=== PATIENT | female | born 1985 | race African-American/Black ===

== ENCOUNTER 2017-11-02 21:43 | Emergency (ER) | payer OTHER ==
[2017-11-02 21:53] VITALS: BP 132/78; PULSE 111; TEMP 98.3; BMI 26.6
--- NOTE | 2017-11-02 21:54 | PDOC ---
Rapid Medical Evaluation Time Seen by Provider: 11/02/17 21:43 Medical Evaluation: Allergies Allergy/AdvReac Type Severity Reaction Status Date / Time No Known Allergies Allergy Verified 02/20/16 00:18 11/02/17 21:46 The patient presents with a chief complaint of: Redness to the tip of the left second finger, cuticle base. H/O Raynauds, gets frequent infections requiring antibiotics. I have performed a brief in-person evaluation of this patient. Pertinent physical exam findings: vss, [mild erythema without edema to the tip of the left second finger, ] I have ordered the following: [None] The patient will proceed to the ED for further evaluation. Discharge Disposition - Diagnosis Finger infection - Referrals - Patient Instructions - Post Discharge Activity
--- NOTE | 2017-11-02 22:47 | PDOC ---
History of Present Illness <Julisa Medel - Last Filed: 11/02/17 22:51> - General History Source: Patient Exam Limitations: No Limitations - History of Present Illness Initial Comments: 11/02/17 22:57 The patient is a year old female, with a significant past medical history of ADHD, s/p pericardial window (2013), and Raynauds, who presents to the emergency department with, three days of an ulcer on her left index with associated pain. She reports associated erythema to the area. She denies recent fevers, chills, headache or dizziness. She denies recent nausea, vomit, diarrhea or constipation. She denies recent dysuria, frequency, urgency or hematuria. She denies recent chest pain or shortness of breath. Allergies: NKA Social history: Nonsmoker. Denies EtOH use and recreational drug use. Primary Care Physician: Dr. Krzysztof Iverson <Tess Evans - Last Filed: 11/02/17 22:58> - General Chief Complaint: Pain Stated Complaint: PAIN Time Seen by Provider: 11/02/17 21:43 Past History - Past Medical History Cancer: Yes (lung) COPD: No Seizures: Yes (NO ACTIVITY SINCE 18 YRS OLD) Other medical history: Raynaud's - Surgical History Cardiac Surgery: Yes (Pericardial window) Orthopedic Surgery: Yes (knee Surgery) - Immunization History Immunization Up to Date: Yes - Suicide/Smoking/Psychosocial Hx Smoking Status: No Smoking History: Never smoked Have you smoked in the past 12 months: No Number of Cigarettes Smoked Daily: 0 Information on smoking cessation initiated: No Hx Alcohol Use: No Drug/Substance Use Hx: No Substance Use Type: None <Julisa Medel - Last Filed: 11/02/17 22:51> <Tess Evans - Last Filed: 11/02/17 22:58> - Past Medical History Allergies/Adverse Reactions: Allergies Allergy/AdvReac Type Severity Reaction Status Date / Time No Known Allergies Allergy Verified 11/02/17 21:49 Home Medications: Ambulatory Orders Nifedipine [Nifedipine ER] 60 mg PO DAILY 02/20/16 Cephalexin Monohydrate [Keflex -] 500 mg PO BID #14 capsule 11/02/17 Sulfamethoxazole/Trimethoprim [Bactrim Ds -] 1 tab PO BID #14 tablet 11/02/17 Review of Systems - Review of Systems Able to Perform ROS?: Yes Comments:: 11/02/17 22:58 CONSTITUTIONAL: Absent: fever, no chills, no fatigue EYES: Absent: visual changes ENT: Absent: ear pain, no sore throat CARDIOVASCULAR: Absent: chest pain, no palpitations RESPIRATORY: Absent: cough, no SOB GI: Absent: abdominal pain, no nausea, no vomiting, no constipation, no diarrhea GENITOURINARY: Absent: dysuria, no frequency, no hematuria MUSKULOSKELETAL: Absent: back pain, no arthralgia, no myalgia SKIN: Present: +Ulcer on the left index finger. +Pain to left index finger with associated erythema. NEURO: Absent: headache All Other Systems: Reviewed and Negative <Tess Evans - Last Filed: 11/02/17 22:58> *Physical Exam - Vital Signs Last Vital Signs Temp Pulse Resp BP Pulse Ox 98.3 F 111 H 20 132/78 97 11/02/17 21:50 11/02/17 21:50 11/02/17 21:50 11/02/17 21:50 11/02/17 21:50 <Julisa Medel - Last Filed: 11/02/17 22:51> - Vital Signs Last Vital Signs Temp Pulse Resp BP Pulse Ox 98.3 F 111 H 20 132/78 97 11/02/17 21:50 11/02/17 21:50 11/02/17 21:50 11/02/17 21:50 11/02/17 21:50 - Physical Exam Comments: 11/02/17 22:58 GENERAL: Well-appearing, well-nourished. No apparent distress. HEENT: Normocephalic, atraumatic. PERRL, EOM intact. CARDIOVASCULAR: Normal S1, S2. Regular rate and rhythm. PULMONARY: Clear to auscultation bilaterally. ABDOMEN: Soft, non-distended, non-tender. EXTREMITIES: Normal ROM in all four extremities. No gross deformities. SKIN: + 0.5cm Cellulitis to the left index finger without associated discharge. Warm, dry. No rash NEUROLOGICAL: No focal neurological deficits. <Tess Evans - Last Filed: 11/02/17 22:58> *DC/Admit/Observation/Transfer - Discharge Dispostion Admit: No <Juilsa Medel - Last Filed: 11/02/17 22:51> - Attestations Scribe Attestion: 11/02/17 22:58 Documentation prepared by Tess Evans, acting as medical fee clerk for Galdino Swain MD. <Tess Evans - Last Filed: 11/02/17 22:58> Diagnosis at time of Disposition: Cellulitis, finger Qualifiers: Laterality: left Qualified Code(s): L03.012 - Cellulitis of left finger - Discharge Dispostion Disposition: HOME - Prescriptions Prescriptions: Cephalexin Monohydrate [Keflex -] 500 mg PO BID #14 capsule Sulfamethoxazole/Trimethoprim [Bactrim Ds -] 1 tab PO BID #14 tablet - Referrals Referrals: Krzysztof Iverson MD [Primary Care Provider] - - Patient Instructions Printed Discharge Instructions: DI for Cellulitis -- Adult Additional Instructions: You have an infection of your L finger. Please take the antibiotics as prescribed for the next week. Please use warm water soaks to help draw the infection to the surface. Please keep an eye on the size of the infection. If it appears to be getting bigger please come back into the emergency department, or go to the nearest emergency department. Return sooner if you see worsening signs of infection, fevers, chills, or have any changes in your symptoms. - Post Discharge Activity
== END 2017-11-02 23:01 | disposition home or self-care (01) ==
LOC: JERFT 21:43
DX: L03.012 Cellulitis of left finger (principal); F90.9 Attention-deficit hyperactivity disorder, unspecified type; I73.00 Raynaud's syndrome without gangrene
CPT/HCPCS: 99281-25

== ENCOUNTER 2018-05-20 08:13 | Emergency (ER) | payer OTHER ==
[2018-05-20 08:22] VITALS: BMI 28.7
--- NOTE | 2018-05-20 08:32 | PDOC ---
History of Present Illness - General Chief Complaint: Chest Pain Stated Complaint: CHEST PAIN Time Seen by Provider: 05/20/18 08:30 History Source: Patient Exam Limitations: No Limitations - History of Present Illness Initial Comments: 05/20/18 09:13 32y F hx of scleroderma, hx of ptx, pericardial effusion s/p pericardial window presents with sharp, locaLized nonradiating left upper chest pain starting yesterday evening. Pt notes the pain was episodic, lasting for minutes before resolving and then coming bakc. improved with ibuprofent last night. no associtaed cough, hemopysis, STRAUSS, fever/chills, leg swelling, abd pain, diaphoresis, palpitations, lightheadedness. Pt notes the pain has since resolved since last night. no recen ttravel or known pe/dvt Card: Dr. Paul Past History - Past Medical History Allergies/Adverse Reactions: Allergies Allergy/AdvReac Type Severity Reaction Status Date / Time No Known Allergies Allergy Verified 05/20/18 08:22 Home Medications: Ambulatory Orders Esomeprazole Magnesium [Nexium 24Hr] 40 mg PO DAILY 05/20/18 Rituximab [Rituxan] 0 mg PO ASDIR 05/20/18 Sulfamethoxazole/Trimethoprim [Bactrim Ds -] 1 tab PO MOWEFR 05/20/18 Cancer: Yes (lung) COPD: No Seizures: Yes (NO ACTIVITY SINCE 18 YRS OLD) Other medical history: sclarederma - Surgical History Cardiac Surgery: Yes (Pericardial window) Orthopedic Surgery: Yes (knee Surgery) - Immunization History Immunization Up to Date: Yes - Suicide/Smoking/Psychosocial Hx Smoking Status: No Smoking History: Never smoked Have you smoked in the past 12 months: No Number of Cigarettes Smoked Daily: 0 Hx Alcohol Use: No Drug/Substance Use Hx: No Substance Use Type: None Review of Systems - Review of Systems Able to Perform ROS?: Yes Comments:: 05/20/18 09:48 Constitutional - no reported Fever, Chills, HEENT: no reported vision changes, sore throat Respiratory: no reported cough, sob, hemoptysis Cardiac: +chest pain, no reported palpitations, light headedness, leg swelling Abd/GI: no reported abd pain, nausea, vomiting, blood per rectum, melena, diarrhea : no reported dysuria, frequency, discharge Musculskelatal - no reported back pain, joint swelling skin - no reported bruising, erythema, rash neurological: no reported headache, numbness, focal weakness, tingling, ataxia, hematologic: no reported easy bruising, easy bleeding *Physical Exam - Vital Signs Last Vital Signs Temp Pulse Resp BP Pulse Ox 98.1 F 68 18 118/79 99 05/20/18 08:18 05/20/18 08:18 05/20/18 08:18 05/20/18 08:18 05/20/18 08:30 - Physical Exam Comments: 05/20/18 09:49 GENERAL: The patient is awake, alert, and fully oriented, Nontoxic - in no acute distress. HEAD: Normocephalic, atraumatic. EYES: extraocular movements intact, sclera anicteric, conjunctiva clear. ENT: Normal voice, Moist mucous membranes. NECK: Normal range of motion, supple LUNGS: Breath sounds equal, clear to auscultation bilaterally. No wheezes, no rhonchi, no rales. HEART: Regular rate and rhythm, normal S1 and S2 without murmur, rub or gallop. ABDOMEN: Soft, nontender, No guarding, no rebound. No CVA tenderness EXTREMITIES: Normal range of motion, no edema. No clubbing or cyanosis. No cords, erythema, or tenderness. NEUROLOGICAL: No facial assymetry, Normal speech, moving all 4 extremities spontaneously and symmetically PSYCH: Normal mood, normal affect. SKIN: Warm, Dry, normal turgor, Heart Score/ECG Review - ECG Impressions Comment:: 05/20/18 09:52 Twelve-lead EKG was performed and reviewed by me. There is normal sinus rhythm with a normal rate. Rate of 69 The axis is normal. The intervals are normal. There is normal R wave progression There are no ST or T wave abnormalities. Impression: Normal twelve-lead EKG ED Treatment Course - LABORATORY CBC & Chemistry Diagram: 05/20/18 10:15 05/20/18 10:15 - ADDITIONAL ORDERS Additional order review: Laboratory Results 05/20/18 05/20/18 10:15 10:08 Sodium 139 Potassium 4.2 Chloride 105 Carbon Dioxide 25 Anion Gap 9 BUN 9 Creatinine 0.7 Creat Clearance w eGFR > 60 Random Glucose 76 Calcium 9.4 Total Bilirubin 0.3 AST 20 ALT 14 Alkaline Phosphatase 98 Creatine Kinase 233 H Creatine Kinase Index 0.4 CK-MB (CK-2) < 1.0 Troponin I < 0.02 Total Protein 8.3 H Albumin 3.3 L Urine Color Yellow Urine Appearance Clear Urine pH 6.0 Ur Specific [place] 1.013 Urine Protein 1+ H Urine Glucose (UA) Negative Urine Ketones Negative Urine Blood Negative Urine Nitrite Negative Urine Bilirubin Negative Urine Urobilinogen Negative Ur Leukocyte Esterase Negative Urine WBC (Auto) 1 Urine RBC (Auto) <1 Ur Epithelial Cells Rare Urine Bacteria Rare Urine Mucus Few Urine HCG, Qual Negative 05/20/18 10:15 RBC 4.12 MCV 88.7 MCHC 33.1 RDW 13.6 MPV 7.2 L Neutrophils % 68.1 Lymphocytes % 23.3 D Monocytes % 6.6 Eosinophils % 1.6 D Basophils % 0.4 - RADIOLOGY Radiology Studies Ordered: Category Date Time Status CHEST PA & LAT [RAD] Stat Radiology 05/20/18 09:16 Taken Medical Decision Making - Medical Decision Making 05/20/18 09:53 32-year-old female history of scleroderma,pericardial effusion status post her cardio window, pneumothorax, presenting with episodic chest pain that is since resolved. Patient is currently asymptomatic with an unremarkable physical exam. Bedside echo reveals trace pericardial effusion Obtain formal echo, will obtain CBC CMP, troponin EKG is unremarkable with no signs of acute ischemia cxr to r/o ptx Case was discussed with Dr. Paul telemetry agrees with blood work, formal echo, chest x-ray 05/20/18 10:[address] paul - reviewed his notes - had an echo in jul that did not show any notable effusions, but agrees with repeating if there is concern of possible effusion 05/20/18 12:19 The patient's labs are unremrakble The patient's echo shows trivial amount of effusion that is not hemodynamicaly significant. The patient is currently asymptomatic Discussed with Dr. Paul agree with discharge with outpatient follow-up 05/20/18 13:10 cxr neg for acute pathology *DC/Admit/Observation/Transfer Diagnosis at time of Disposition: Chest pain Qualifiers: Chest pain type: unspecified Qualified Code(s): R07.9 - Chest pain, unspecified - Discharge Dispostion Disposition: HOME Condition at time of disposition: Improved Decision to Admit order: No - Referrals Referrals: Jairo Paul MD [Staff Physician] - - Patient Instructions Printed Discharge Instructions: DI for Atypical Chest Pain Additional Instructions: Return to the emergency department immediately with ANY new, persistent or worsening symptoms. You MUST call and follow up with your doctor tomorrow for further evaluation of your symptoms. Results were discussed with you. Please make sure your doctor reviews the results of your emergency evaluation. If you had any xrays during your visit, it was read preliminarily by myself, a Radiologist will review it and if there are any additional findings we will call you. Print Language: URDU - Post Discharge Activity
[2018-05-20 10:31] LABS: BASO % 0.4 % (0-2.0); EOS % 1.6 % (0-4.5); HEMATOCRIT 36.6 % (32.4-45.2); HEMOGLOBIN 12.1 GM/dL (10.7-15.3); LYMPH % 23.3 % (8-40); MCH 29.4 pg (25.7-33.7); MCHC 33.1 g/dl (32.0-36.0); MEAN CELL VOLUME 88.7 fl (80-96); MEAN PLT VOLUME 7.2 fl (7.5-11.1); MONO % 6.6 % (3.8-10.2); NEUT % 68.1 % (42.8-82.8); PLATELET COUNT 329 K/MM3 (134-434); RBC 4.12 M/mm3 (3.60-5.2); RDW 13.6 % (11.6-15.6); WHITE BLOOD COUNT 8.6 K/mm3 (4.0-10.0)
[2018-05-20 10:44] LABS: URINE APPEARANCE CLEAR; URINE BILIRUBIN NEGATIVE (<2.0 mg/dL); URINE COLOR YELLOW; URINE GLUCOSE (UA) NEGATIVE (NEGATIVE); URINE KETONE NEGATIVE (NEGATIVE); URINE LEUK ESTERASE NEGATIVE (NEGATIVE); URINE NITRITE NEGATIVE (NEGATIVE); URINE UROBILINOGEN NEGATIVE mg/dL (0.2-1.0)
[2018-05-20 10:45] LABS: HCG,QUALITATIVE URINE Negative
[2018-05-20 10:50] LABS: ALBUMIN 3.3 g/dl (3.4-5.0); ALK PHOS 98 U/L (45-117); ANION GAP 9 MMOL/L (8-16); BILIRUBIN,TOTAL 0.3 mg/dL (0.2-1); BLOOD UREA NITROGEN 9 mg/dL (7-18); CALCIUM 9.4 mg/dL (8.5-10.1); CHLORIDE 105 mmol/L (98-107); CO2 25 mmol/L (21-32); CREATININE 0.7 mg/dL (0.55-1.3); GLUCOSE,RANDOM 76 mg/dL (74-106); POTASSIUM 4.2 mmol/L (3.5-5.1); SGOT/AST 20 U/L (15-37); SGPT/ALT 14 U/L (13-61); SODIUM 139 mmol/L (136-145); TOT PROT 8.3 g/dl (6.4-8.2)
[2018-05-20 11:02] LABS: URINE PROTEIN 1+ (NEGATIVE)
[2018-05-20 11:04] LABS: EPI CELLS RARE /HPF (FEW); URINE BACTERIA RARE /hpf (NONE SEEN); URINE MUCUS FEW
--- NOTE | 2018-05-20 11:12 | ECHO ---
Name: JEANNA LEMUS Exam:Adult Echocardiogram Study Date: 05/20/2018 10:34 AM Age: 32 yrs Reason For Study: R/O EFFUSION Height: 68 in Weight: 189 lb BSA: 2.0 m2 MMode/2D Measurements & Calculations IVSd: 0.77 cm Ao root diam: 2.5 cm LVIDd: 5.1 cm LA dimension: 2.8 cm LVIDs: 3.3 cm LVPWd: 0.96 cm EDV(Teich): 121.7 ml ESV(Teich): 44.1 ml Doppler Measurements & Calculations MV E max vitor: 78.1 cm/sec TR max vitor: 245.7 cm/sec MV A max vitor: 55.3 cm/sec TR max P.1 mmHg MV E/A: 1.4 MV dec time: 0.12 sec Med Peak E' Vitor: 7.1 cm/sec PI Vmax: 192.7 cm/sec Med E/e': 11.0 Lat Peak E' Vitor: 7.4 cm/sec Lat E/e': 10.6 Procedure The study was technically difficult with many images being suboptimal in quality. Left Ventricle Left ventricular systolic function is grossly normal. Regional wall motion abnormalities cannot be ex cluded due to limited visualization. Right Ventricle The right ventricle is grossly normal size. The right ventricular systolic function is grossly normal . Atria Normal left and right atrial size and function. Mitral Valve The mitral valve is grossly normal. There is no mitral valve stenosis. There is trace to mild mitral regurgitation. Tricuspid Valve The tricuspid valve is not well visualized, but is grossly normal. There is mild tricuspid regurgitat ion. Right ventricular systolic pressure is normal. Aortic Valve The aortic valve opens well. No hemodynamically significant valvular aortic stenosis. No aortic regur gitation is present. Pulmonic Valve The pulmonic valve is not well seen, but is grossly normal. There is no pulmonic valvular stenosis. M ild pulmonic valvular regurgitation. Great Vessels The aortic root is normal size. Pericardium/Pleura Trivial pericardial effusion not hemodynamically significant. Interpretation Summary Trivial pericardial effusion not hemodynamically significant The study was technically difficult with many images being suboptimal in quality. Regional wall motion abnormalities cannot be excluded due to limited visualization. Left ventricular systolic function is grossly normal. There is trace to mild mitral regurgitation. There is mild tricuspid regurgitation. Right ventricular systolic pressure is normal. The aortic valve opens well. Mild pulmonic valvular regurgitation. MD Terell Cedeño 05/20/2018 11:11 AM
[2018-05-20 13:21] VITALS: BP 116/79; PULSE 73; TEMP 98
--- NOTE | 2018-05-21 08:13 | PDOC ---
Patient Follow-up (Call Back) - Post ED Follow - Up Condition at time of discharge: Improved Disposition at time of original discharge: HOME Reason for Call Back: Radiology (Received phone call from radiologist recommending a nonemergent CT of the chest secondary to patchy density near the mediastinum. spoke to mother and will follow up with architecture technician, Dr. Huerta)
--- NOTE | 2018-05-21 15:39 | EKG ---
Test Reason : Blood Pressure : / mmHG Vent. Rate : 069 BPM Atrial Rate : 069 BPM P-R Int : 142 ms QRS Dur : 068 ms QT Int : 398 ms P-R-T Axes : 028 069 027 degrees QTc Int : 426 ms NORMAL SINUS RHYTHM NORMAL ECG WHEN COMPARED WITH ECG OF 08-JUN-2014 08:34, T WAVE AMPLITUDE HAS INCREASED IN LATERAL LEADS Confirmed by MD Freddy, Flaco ([id number]) on 05/21/2018 3:39:31 PM Referred By: Confirmed By:Flaco Hayes MD
== END 2018-05-20 13:19 | disposition home or self-care (01) ==
LOC: JER 08:13
DX: R07.9 Chest pain, unspecified (principal); Z85.118 Personal history of other malignant neoplasm of bronchus and lung
CPT/HCPCS: 36415; 71046-TC-FY; 80053; 81003; 81015; 82550; 82553; 84484; 84703; 85025; 93005; 93010; 93306-TC; 99285-25

== ENCOUNTER 2018-05-24 15:35 | Emergency (ER) | payer OTHER ==
--- NOTE | 2018-05-24 16:25 | PDOC ---
Rapid Medical Evaluation Time Seen by Provider: 05/24/18 16:20 Medical Evaluation: Allergies Allergy/AdvReac Type Severity Reaction Status Date / Time No Known Allergies Allergy Verified 05/20/18 08:22 05/24/18 16:21 Pt with PMH of varinder presents to the ED for R 4th finger pain. Pt is L hand dominant. States that she feels like she pulled something yesterday Exam: TTP of the base of the 4th metacarple. Depressed knuckle Orders: X-ray Pt to proceed to the ED for further evaluation Discharge Disposition - Diagnosis Finger pain Qualifiers: Laterality: right Qualified Code(s): M79.644 - Pain in right finger(s) - Referrals - Patient Instructions - Post Discharge Activity
[2018-05-24 16:26] VITALS: BP 123/76; PULSE 58; TEMP 98; BMI 28.7
--- NOTE | 2018-05-24 17:34 | PDOC ---
History of Present Illness - General Chief Complaint: Pain, Acute Stated Complaint: RT HAND SWOLLEN Time Seen by Provider: 05/24/18 16:20 - History of Present Illness Initial Comments: 32-year-old female presents for evaluation of right fourth finger pain. She states she was reaching for something in her car felt a strain in the palmar aspect of her right hand and has now right ring finger pain. She has no comorbidities. 05/24/18 17:28 Past History - Past Medical History Allergies/Adverse Reactions: Allergies Allergy/AdvReac Type Severity Reaction Status Date / Time No Known Allergies Allergy Verified 05/20/18 08:22 Home Medications: Ambulatory Orders NK [No Known Home Medication] 05/24/18 Cancer: Yes (lung) COPD: No DVT: No Seizures: Yes (NO ACTIVITY SINCE 18 YRS OLD) - Surgical History Cardiac Surgery: Yes (Pericardial window) Orthopedic Surgery: Yes (knee Surgery) - Immunization History Immunization Up to Date: Yes - Suicide/Smoking/Psychosocial Hx Smoking Status: No Smoking History: Never smoked Have you smoked in the past 12 months: No Number of Cigarettes Smoked Daily: 0 Hx Alcohol Use: No Drug/Substance Use Hx: No Substance Use Type: None Review of Systems - Review of Systems Musculoskeletal: Yes: See HPI All Other Systems: Reviewed and Negative *Physical Exam - Vital Signs Last Vital Signs Temp Pulse Resp BP Pulse Ox 98 F 58 L 16 123/76 99 05/24/18 16:24 05/24/18 16:24 05/24/18 16:24 05/24/18 16:24 05/24/18 16:24 - Physical Exam Comments: Left fourth finger skin color and temperature are normal. There is hyperextension of the DIPJ and flexion of the PIPJ. FDS and FDP work independently. There is mild tenderness throughout the or smoke finger. Mild tenderness about the palmar aspect and A-1 carlos of the right fourth finger. There are no gross sensorimotor deficits. She is neurovascularly intact. [employer] Floor [employer] Assembly strength is slightly decreased. 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 I'll have her follow-up with Dr. Burgos from hand surgery further evaluation and treatment options. 05/24/18 17:30 *DC/Admit/Observation/Transfer Diagnosis at time of Disposition: Boutonniere deformity of finger Finger pain Qualifiers: Laterality: right Qualified Code(s): M79.644 - Pain in right finger(s) - Discharge Dispostion Disposition: HOME Condition at time of disposition: Stable Decision to Admit order: No - Referrals Referrals: Brayan Burgos MD [Staff Physician] - - Patient Instructions Printed Discharge Instructions: Boutonnire Deformity of Finger Additional Instructions: Keep the splint intact place until seen by hand surgery. Please follow-up with hand surgery in 2-3 days for further evaluation and treatment options. He may remove this point for hygiene. Return to the emergency room should symptoms worsen or go unresolved. He may take Tylenol and Motrin for pain. - Post Discharge Activity
== END 2018-05-24 18:16 | disposition home or self-care (01) ==
LOC: JERFT 15:35
PROC: 2W3JX1Z Immobilization of Right Finger using Splint (ICD-10-PCS; principal; 2018-05-24)
DX: M20.021 Boutonniere deformity of right finger(s) (principal); Z85.110 Personal history of malignant carcinoid tumor of bronchus and lung; Z86.69 Personal history of other diseases of the nervous system and sense organs
CPT/HCPCS: 29130; 73130-TC-RT-FY; 84703; 99281-25

== ENCOUNTER 2018-06-22 18:06 | Emergency (ER) | payer OTHER ==
[2018-06-22] MEDS ORDERED: SODIUM CHLORIDE 0.9% 1000 ML INFUS.BAG IV STA (18:28)
[2018-06-22 18:30] VITALS: BMI 27.2
--- NOTE | 2018-06-22 18:30 | PDOC ---
Rapid Medical Evaluation Time Seen by Provider: 06/22/18 18:22 Medical Evaluation: Allergies Allergy/AdvReac Type Severity Reaction Status Date / Time No Known Allergies Allergy Verified 05/20/18 08:22 06/22/18 18:24 I have performed a brief in-person evaluation of this patient. The patient presents with a chief complaint of: "My bones hurt." h/o scleroderma on Chemo- last dose 06/13 Pertinent physical exam findings: Coarse crackles in Right base. T-99.1, HR-104 , Spo2- 97% I have ordered the following: Sepsis w/u The patient will proceed to the ED for further evaluation. Discharge Disposition - Diagnosis Cough - Referrals - Patient Instructions - Post Discharge Activity
[2018-06-22 20:56] LABS: URINE APPEARANCE CLEAR; URINE BILIRUBIN NEGATIVE (<2.0 mg/dL); URINE COLOR YELLOW; URINE GLUCOSE (UA) NEGATIVE (NEGATIVE); URINE KETONE NEGATIVE (NEGATIVE); URINE LEUK ESTERASE NEGATIVE (NEGATIVE); URINE NITRITE NEGATIVE (NEGATIVE); URINE PROTEIN 2+ (NEGATIVE); URINE UROBILINOGEN NEGATIVE mg/dL (0.2-1.0)
[2018-06-22 20:59] LABS: URINE MUCUS RARE
[2018-06-22 21:18] LABS: BASO % 0.4 % (0-2.0); EOS % 0.8 % (0-4.5); HEMATOCRIT 37.9 % (32.4-45.2); HEMOGLOBIN 12.2 GM/dL (10.7-15.3); LYMPH % 13.7 % (8-40); MCH 28.1 pg (25.7-33.7); MCHC 32.3 g/dl (32.0-36.0); MEAN CELL VOLUME 86.9 fl (80-96); MEAN PLT VOLUME 7.4 fl (7.5-11.1); MONO % 5.7 % (3.8-10.2); NEUT % 79.4 % (42.8-82.8); PLATELET COUNT 323 K/MM3 (134-434); RBC 4.36 M/mm3 (3.60-5.2); RDW 13.7 % (11.6-15.6); VENOUS PC02 35.1 mmHg (38-52); VENOUS PH 7.45 (7.32-7.42); VENOUS PO2 39.7 mmHg (28-48); WHITE BLOOD COUNT 12.9 K/mm3 (4.0-10.0)
[2018-06-22 21:33] LABS: INR 1.13 (0.83-1.09); PROTHROMBIN TIME (PATIENT) 13.4 SEC (9.7-13.0)
[2018-06-22 21:35] LABS: ACTIVATED PTT 31.4 SECONDS (25.2-36.5)
[2018-06-22 21:39] LABS: ALBUMIN 3.4 g/dl (3.4-5.0); ALK PHOS 102 U/L (45-117); ANION GAP 12 MMOL/L (8-16); BILIRUBIN,TOTAL 0.4 mg/dL (0.2-1); BLOOD UREA NITROGEN 8 mg/dL (7-18); CHLORIDE 103 mmol/L (98-107); CO2 24 mmol/L (21-32); CREATININE 0.6 mg/dL (0.55-1.3); GLUCOSE,RANDOM 84 mg/dL (74-106); POTASSIUM 3.9 mmol/L (3.5-5.1); SGOT/AST 19 U/L (15-37); SGPT/ALT 15 U/L (13-61); SODIUM 140 mmol/L (136-145); TOT PROT 8.6 g/dl (6.4-8.2)
--- NOTE | 2018-06-22 22:17 | PDOC ---
Attending Attestation - [facility] HPI: 06/22/18 22:54 The patient is a 32 year old female, with a significant past medical history of scleroderma, who presents to the emergency department with weeks of productive cough and diffuse body aches. The patient denies chest pain, shortness of breath, headache and dizziness. The patient denies fever, chills, nausea, vomit, diarrhea and constipation. The patient denies dysuria, frequency, urgency and hematuria. 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 No acute distress. Head: Normocephalic. Atraumatic Eyes: PERRL. EOMI. Conjunctivae are not pale. ENT: Mucous membranes are moist and intact. Posterior pharynx without exudates or erythema. Uvula midline. Neck: Supple. Full ROM. No lymphadenopathy. Cardiovascular: (+) tachycardic rate. Regular rhythm. S1, S2 regular. Distal pulses are 2+ and symmetric. Pulmonary/Chest: No evidence of respiratory distress. Clear to auscultation bilaterally No wheezing, rales or rhonchi. Abdominal: (+) RUQ and right flank TTP. Soft and non-distended. No rebound, guarding or rigidity. No organomegaly. No palpable masses. Good bowel sounds. Back: No CVA tenderness. Musculoskeletal: (+) diffuse tenderness. No edema. No cyanosis. No clubbing. Full range of motion in all extremities. No calf tenderness. Radial/pedal pulses are intact and 2+ bilaterally Skin: Skin is warm to touch. skin is dry. No petechiae. No purpura. Neurological: Alert and oriented to person, place, and time. Cranial nerves II- XII are grossly intact. Normal speech. Strength is grossly symmetric. No sensory deficits. Psychiatric: Good eye contact. Normal interaction, affect and behavior. - Medical Decision Making 06/22/18 22:56 Documentation prepared by Gill Adams, acting as program medical director for Sabrina Pitts DO 06/23/18 00:40 DATE OF SERVICE: 2018-06-22 23:40:56 IMAGES: [id number] EXAM: CT chest, abdomen and pelvis IMPRESSION: Moderate subpleural interstitial fibrosis Small pericardial effusion. 2.9 cm involuting left ovarian cyst with small amount of pelvic free fluid Basil Glasgow MD 06/23/2018 00:27 EST <Gill Adams - Last Filed: 06/23/18 00:40> - Resident Resident Name: Sohan Simental - ED Attending Attestation I have performed the following: I have examined & evaluated the patient, The case was reviewed & discussed with the resident, I agree w/resident's findings & plan, Exceptions are as noted - Medical Decision Making 06/22/18 22:16 I, Dr. Sabrina Pitts, DO, attest that this document has been prepared under my direction and personally reviewed by me in its entirety. I further attest, that it accurately reflects all work, treatment, procedures and medical decision -making performed by me. 06/22/18 22:49 a/p: 32yo female with hx of scleroderma on an immune modulating agent presents for eval of a cough x 6m that is dry and a fever today -pt also c/o worsening bone pain -pt follows with rheumatology at [place], next appt is july -no sore throat or rhinorrhea -pt with labs sent from [facility] - elevated wbc -cxr does not show acute infiltrate -RUQ/RLQ ttp on exam -will obtain ct imaging for further eval of abd pain and cough -will monitor and reassess 06/23/18 00:[address] c/a/p negative for acute pathology, cyst to L ovary no uti cxr clear suspect viral syndrome worsening her pain cultures pending small pericardial effusion on ct - will perform bedside ultrasound 06/23/18 01:41 pt states feeling better pt requesting to go home hx of autism - case discussed with both parents who understand all reasons to return to the ED and need for follow up with PMD - Dr Deluna discussed that cultures are pending - mother requests to call to her with abnl results pt stable for d/c to home with most likely viral syndrome discussed need for follow up with PMD and architectural engineer answered all questons pt ambulated to the bathroom with a steady gait <Sabrina Pitts - Last Filed: 06/23/18 01:42> Heart Score/ECG Review - ECG Intrepretation Comment:: 06/22/18 22:49 sinus tach at 101, nl axis, nl interval, no acute st/t wave findings <Sabrina Pitts - Last Filed: 06/23/18 01:42>
[2018-06-22] MEDS ORDERED: ACETAMINOPHEN 1000 MG/100 ML VIAL (NON FORMULARY) IVPB ONE (22:31)
[2018-06-22] MEDS ORDERED: ACETAMINOPHEN INJECTION 100 ML IVPB ONE (22:39)
[2018-06-22 22:46] VITALS: BP 104/90; PULSE 90; TEMP 99.3
[2018-06-22] MEDS ORDERED: KETOROLAC TROMETHAMINE 15 MG/ML VIAL IVPUSH ONE (22:52)
--- NOTE | 2018-06-22 23:06 | PDOC ---
History of Present Illness - General Chief Complaint: Respiratory Stated Complaint: cough and body aches Time Seen by Provider: 06/22/18 18:22 - History of Present Illness Initial Comments: The patient is a 32 F w/ a history of scleroderma and autism spetrum disorder who presents for evaluation of increased bone pain as well as a chronic non- productive cough. 06/22/18 22:56 06/23/18 01:42 Past History - Past Medical History Allergies/Adverse Reactions: Allergies Allergy/AdvReac Type Severity Reaction Status Date / Time No Known Allergies Allergy Verified 05/20/18 08:22 Home Medications: Ambulatory Orders NK [No Known Home Medication] 05/24/18 Cancer: Yes (lung) COPD: No CHF: No DVT: No Seizures: Yes (NO ACTIVITY SINCE 18 YRS OLD) Other medical history: chemotherapy - Surgical History Cardiac Surgery: Yes (Pericardial window) Orthopedic Surgery: Yes (knee Surgery) - Immunization History Immunization Up to Date: Yes - Suicide/Smoking/Psychosocial Hx Smoking Status: No Smoking History: Never smoked Have you smoked in the past 12 months: No Number of Cigarettes Smoked Daily: 0 Information on smoking cessation initiated: No Hx Alcohol Use: No Drug/Substance Use Hx: No Substance Use Type: None Review of Systems - Review of Systems Able to Perform ROS?: Yes Comments:: GENERAL/CONSTITUTIONAL: No fever or chills HEAD, EYES, EARS, NOSE AND THROAT: No change in vision. No ear pain or discharge. No sore throat CARDIOVASCULAR: No chest pain or shortness of breath RESPIRATORY: +chronic non-productive cough; denies wheezing or hemoptysis GASTROINTESTINAL: No nausea, vomiting, diarrhea or constipation GENITOURINARY: No dysuria, frequency, or change in urination MUSCULOSKELETAL: chronic bone pain that is worse today SKIN: No rash NEUROLOGIC: No vertigo, loss of consciousness, or change in strength/sensation ENDOCRINE: No increased thirst. No abnormal weight change HEMATOLOGIC/LYMPHATIC: No anemia, easy bleeding, or history of blood clots ALLERGIC/IMMUNOLOGIC: No hives or skin allergy 06/23/18 20:21 Is the patient limited French proficient: No *Physical Exam - Vital Signs Last Vital Signs Temp Pulse Resp BP Pulse Ox 99.3 F 90 20 104/90 96 06/22/18 19:30 06/22/18 19:30 06/22/18 19:30 06/22/18 19:30 06/22/18 19:30 - Physical Exam Comments: GENERAL: Awake, alert, and fully oriented, in no acute distress_ HEAD: No signs of trauma, normocephalic, atraumatic _ EYES: PERRL, EOMI, sclera anicteric, conjunctiva clear_ ENT: Hearing grossly normal, nares patent, oropharynx clear without exudates. Moist mucosa_ NECK: Normal ROM, supple, no lymphadenopathy _ LUNGS: No distress, speaks full sentences, clear to auscultation bilaterally _ HEART:Regular rate and rhythm, normal S1 and S2, no murmurs appreciated, peripheral pulses normal and equal bilaterally _ ABDOMEN: Soft, nontender, normoactive bowel sounds. No guarding, no rebound. No masses_ EXTREMITIES: Diffuse msk TTP that is moderately worse than her baseline NEUROLOGICAL: Cranial nerves II through XII grossly intact. Normal speech, normal gait, no focal sensorimotor deficits SKIN: Warm, Dry, normal turgor, no rashes or lesions noted_ 06/23/18 20:23 ED Treatment Course - LABORATORY CBC & Chemistry Diagram: 06/22/18 20:52 06/22/18 20:52 - ADDITIONAL ORDERS Additional order review: Laboratory Results 06/22/18 06/22/18 06/22/18 20:52 20:52 20:52 PT with INR INR PTT (Actin FS) VBG pH POC VBG pCO2 POC VBG pO2 Mixed VBG HCO3 Sodium 140 Potassium 3.9 Chloride 103 Carbon Dioxide 24 Anion Gap 12 BUN 8 Creatinine 0.6 Creat Clearance w eGFR > 60 Random Glucose 84 Lactic Acid 1.2 Calcium 9.0 Total Bilirubin 0.4 AST 19 ALT 15 Alkaline Phosphatase 102 Troponin I < 0.02 Total Protein 8.6 H Albumin 3.4 Urine Color Urine Appearance Urine pH Ur Specific [place] Urine Protein Urine Glucose (UA) Urine Ketones Urine Blood Urine Nitrite Urine Bilirubin Urine Urobilinogen Ur Leukocyte Esterase Urine WBC (Auto) Urine RBC (Auto) Urine Mucus Urine HCG, Qual 06/22/18 06/22/18 06/22/18 20:52 20:52 20:25 PT with INR 13.40 H INR 1.13 H PTT (Actin FS) 31.4 VBG pH 7.45 H POC VBG pCO2 35.1 L POC VBG pO2 39.7 Mixed VBG HCO3 23.7 Sodium Potassium Chloride Carbon Dioxide Anion Gap BUN Creatinine Creat Clearance w eGFR Random Glucose Lactic Acid Calcium Total Bilirubin AST ALT Alkaline Phosphatase Troponin I Total Protein Albumin Urine Color Urine Appearance Urine pH Ur Specific [place] Urine Protein Urine Glucose (UA) Urine Ketones Urine Blood Urine Nitrite Urine Bilirubin Urine Urobilinogen Ur Leukocyte Esterase Urine WBC (Auto) Urine RBC (Auto) Urine Mucus Urine HCG, Qual Negative 06/22/18 20:25 PT with INR INR PTT (Actin FS) VBG pH POC VBG pCO2 POC VBG pO2 Mixed VBG HCO3 Sodium Potassium Chloride Carbon Dioxide Anion Gap BUN Creatinine Creat Clearance w eGFR Random Glucose Lactic Acid Calcium Total Bilirubin AST ALT Alkaline Phosphatase Troponin I Total Protein Albumin Urine Color Yellow Urine Appearance Clear Urine pH 6.0 Ur Specific [place] 1.024 Urine Protein 2+ H Urine Glucose (UA) Negative Urine Ketones Negative Urine Blood Negative Urine Nitrite Negative Urine Bilirubin Negative Urine Urobilinogen Negative Ur Leukocyte Esterase Negative Urine WBC (Auto) <1 Urine RBC (Auto) 4 Urine Mucus Rare Urine HCG, Qual 06/22/18 20:52 RBC 4.36 MCV 86.9 MCHC 32.3 RDW 13.7 MPV 7.4 L Neutrophils % 79.4 Lymphocytes % 13.7 D Monocytes % 5.7 Eosinophils % 0.8 Basophils % 0.4 - RADIOLOGY Radiology Studies Ordered: Category Date Time Status ABDOMEN & PELVIS CT WITH CONTR [CT] Stat CT Scan 06/22/18 22:[address] WITH CONTRAST [CT] Stat CT Scan 06/22/18 22:41 Ordered - Medications Given in the ED: ED Medications Discontinued Medications Generic Name Dose Route Start Last Admin Trade Name Freq PRN Reason Stop Dose Admin Acetaminophen 1,000 mg 06/22/18 22:31 06/22/18 22:44 Ofirmev Injection - IVPB 06/22/18 22:32 1,000 mg ONCE ONE Administration Sodium Chloride 2,000 ml 06/22/18 18:28 06/22/18 19:40 Normal Saline - IV 06/22/18 18:29 2,000 ml ONCE STA Administration Medical Decision Making - Medical Decision Making The patient is a 32F w/ a history of Scleroderma who presents for evaluation of diffuse acute on chronic bone pain as well as a non-productive cough for several months Dispo: Home 06/23/18 04:32 *DC/Admit/Observation/Transfer Diagnosis at time of Disposition: Cough, Viral syndrome, Pain - Discharge Dispostion Disposition: HOME Condition at time of disposition: Improved Decision to Admit order: No - Referrals Referrals: Villa Peters MD [Staff Physician] - Lucy Silverman [Other] - Patient Instructions Printed Discharge Instructions: DI for Viral Syndrome Additional Instructions: You were seen in the Emergency Department today for cough and pain. Please review the handouts provided at discharge. Please follow up with your primary care doctor and [facility]. Return to the Emergency Department if you develop fevers, worsening symptoms, or new/concerning symptoms. - Post Discharge Activity
[2018-06-22] MEDS ORDERED: KETOROLAC TROMETHAMINE 15 MG/ML VIAL ONE (23:30)
--- NOTE | 2018-06-23 12:18 | EKG ---
Test Reason : Blood Pressure : / mmHG Vent. Rate : 101 BPM Atrial Rate : 101 BPM P-R Int : 120 ms QRS Dur : 070 ms QT Int : 328 ms P-R-T Axes : 058 080 025 degrees QTc Int : 425 ms SINUS TACHYCARDIA POSSIBLE LEFT ATRIAL ENLARGEMENT BORDERLINE ECG WHEN COMPARED WITH ECG OF 20-MAY-2018 08:22, NO SIGNIFICANT CHANGE WAS FOUND Confirmed by SANDEEP POOLE MD ([id number]) on 06/23/2018 12:17:51 PM Referred By: Confirmed By:SANDEEP POOLE MD
== END 2018-06-23 02:01 | disposition home or self-care (01) ==
LOC: JER 18:06
PROC: 3E033NZ Introduction of Analgesics, Hypnotics, Sedatives into Peripheral Vein, Percutaneous Approach (ICD-10-PCS; principal; 2018-06-22)
PROC: 3E0333Z Introduction of Anti-inflammatory into Peripheral Vein, Percutaneous Approach (ICD-10-PCS; 2018-06-22)
DX: R05 Cough (principal); B34.9 Viral infection, unspecified; M34.81 Systemic sclerosis with lung involvement; Z85.118 Personal history of other malignant neoplasm of bronchus and lung
CPT/HCPCS: 36415; 71045-TC-FY; 71260-TC; 74177-TC; 80053; 81003; 81015; 82803; 83605; 84484; 84703; 85025; 85610; 85730; 87040; 87086; 87804; 93005; 93010; 99283-25; J0131; J7030

== ENCOUNTER 2018-07-21 22:48 | Emergency (ER) | payer OTHER ==
[2018-07-21 22:54] VITALS: BP 140/83; PULSE 100; TEMP 98.3; BMI 28.4
--- NOTE | 2018-07-21 23:26 | PDOC ---
History of Present Illness - General Chief Complaint: Pain Stated Complaint: CHEST PAIN Time Seen by Provider: 07/21/18 23:26 - History of Present Illness Initial Comments: 32 year old female with PMH of scleroderma (complicated by pericardial effusion and left sided pneumothorax) presenting with acute on chronic right sided upper chest pain for the past three days. Of note, patient had an upper left sided pneumonia for the past few weeks that was treated with cipro 5 days completed on two days prior with good resolution of symptoms. However, she had had a lingering cough that seems to have worsened her chest pain. Describes her chest pain as non-exertional, worse with cough, radiating from her upper right chest to her upper right back, and does not co-present with diaphoresis, nausea, vomiting, SOB, or presyncopal symptoms. Cough is dry. She has seen Dr. Crabtree twice in the last month, most recently one week prior. She has had multiple EKGs and halter monitor that were negative for any acute pathology or extended event. Denies fevers, chills, nausea, vomiting, diarrhea, headache, SOB , or other symptoms. 07/22/18 00:35 Past History - Past Medical History Allergies/Adverse Reactions: Allergies Allergy/AdvReac Type Severity Reaction Status Date / Time No Known Allergies Allergy Verified 07/22/18 00:28 Home Medications: Ambulatory Orders Esomeprazole Magnesium 40 mg PO DAILY 07/22/18 Nifedipine ER [Procardia Xl -] 60 mg PO DAILY 07/22/18 Ranitidine [Zantac -] 150 mg PO DAILY 07/22/18 Cancer: Yes (lung) COPD: No CHF: No DVT: No Seizures: Yes (NO ACTIVITY SINCE 18 YRS OLD) Other medical history: RAYNAUDS - Surgical History Cardiac Surgery: Yes (Pericardial window) Orthopedic Surgery: Yes (knee Surgery) - Immunization History Immunization Up to Date: Yes - Suicide/Smoking/Psychosocial Hx Smoking Status: No Smoking History: Never smoked Have you smoked in the past 12 months: No Number of Cigarettes Smoked Daily: 0 Hx Alcohol Use: No Drug/Substance Use Hx: No Substance Use Type: None Review of Systems - Review of Systems Constitutional: No: Chills, Diaphoresis, Fever, Loss of Appetite HEENTM: No: Eye Pain, Blurred Vision, Tearing Respiratory: Yes: Cough. No: Orthopnea, Shortness of Breath Cardiac (ROS): Yes: Chest Pain. No: Irregular Heart Rate, Lightheadedness, Palpitations, Chest Tightness ABD/GI: No: Constipated, Diarrhea, Nausea, Vomiting : No: Dysuria, Discharge, Frequency Musculoskeletal: No: Back Pain, Gout Integumentary: No: Lesions, Lumps, Pallor, Pruritus, Rash Neurological: No: Headache, Numbness, Paresthesia Psychiatric: No: Anxiety, Depression Endocrine: No: Symptoms Reported, See HPI, Excessive Sweating Hematologic/Lymphatic: No: Anemia, Blood Clots, Easy Bleeding *Physical Exam - Vital Signs Last Vital Signs Temp Pulse Resp BP Pulse Ox 98.3 F 100 H 18 140/83 07/21/18 22:50 07/21/18 22:50 07/21/18 22:50 07/21/18 22:50 - Physical Exam General Appearance: Yes: Nourished, Appropriately Dressed. No: Apparent Distress HEENT: positive: EOMI, ARYA, Normal ENT Inspection, Normal Voice Neck: positive: Trachea midline, Normal Thyroid, Supple. negative: Tender, Rigid Respiratory/Chest: positive: Chest Tender (right 3rd intercostal space tenerness and right upper posterior thoracic pain to palpation). negative: Lungs Clear (fine bilateral crackles throughout lung lamar), Normal Breath Sounds, Respiratory Distress Cardiovascular: positive: Regular Rhythm, Regular Rate Gastrointestinal/Abdominal: positive: Normal Bowel Sounds, Flat, Soft. negative : Tender Musculoskeletal: positive: Normal Inspection. negative: CVA Tenderness Extremity: positive: Normal Capillary Refill, Normal Inspection, Normal Range of Motion. negative: Tender Integumentary: positive: Normal Color, Dry, Warm Neurologic: positive: Fully Oriented, Alert, Normal Mood/Affect, Normal Response , Motor Strength 5/5 Medical Decision Making - Medical Decision Making 32 year old female with history of scleroderma presenting with reproducible right side upper chest pain likely concerning for costochondritis. EKG showing NSR with rate 89, NM interval 138, QRS 72, QTc 452, normal axis, no ST/ T wave changes and no voltage changes. Bedside echo demonstrated small pericardial effusion but good cardiac motility. CXR no demonstrating pneumo on upper right but does have some residual left lower long field changes consistent with resolving pneumonia. Patient's VSS and pain improved slightly with ibuprofen 600. 11/23/18 01:20 *DC/Admit/Observation/Transfer Diagnosis at time of Disposition: Chest pain Qualifiers: Chest pain type: unspecified Qualified Code(s): R07.9 - Chest pain, unspecified - Discharge Dispostion Disposition: HOME Condition at time of disposition: Improved Decision to Admit order: No - Referrals Referrals: Villa Peters MD [Primary Care Provider] - - Patient Instructions Printed Discharge Instructions: DI for Atypical Chest Pain Additional Instructions: Please use ibuprofen and Tylenol for your chest pain. Please follow up with your PCP next week. Please return to the ED if you have any new or worsening symptoms. - Post Discharge Activity
--- NOTE | 2018-07-21 23:28 | PDOC ---
Attending Attestation - HPI HPI: 07/21/18 23:52 The patient is a 32 yo Female with a significant past medical history of scleroderma (on immunotherapy) and autism spectrum disorder who presents for evaluation of non-productive cough that wakes her from sleep and intermittent chest pain for about 4 weeks. She states the chest pain is localized to right upper anterior chest and back which is exacerbated by coughing. She denies associated fevers/chills, GROSS, dizziness, N/V/C/D, dysuria or blood in her urine or stool. PCP: Dr. Villa Peters - Physicial Exam PE: 07/21/18 23:54 GENERAL: Awake, alert, and fully oriented, in no acute distress HEAD: No signs of trauma EYES: PERRLA, EOMI, sclera anicteric, conjunctiva clear ENT: Auricles normal inspection, hearing grossly normal, nares patent, oropharynx clear without exudates. Moist mucosa NECK: Normal ROM, supple, no lymphadenopathy, JVD, or masses LUNGS: Breath sounds equal, clear to auscultation bilaterally. No wheezes, and no crackles HEART: Regular rate and rhythm, normal S1 and S2, no murmurs, rubs or gallops ABDOMEN: Soft, nontender, normoactive bowel sounds. No guarding, no rebound. No masses EXTREMITIES: Normal range of motion, no edema. No clubbing or cyanosis. No cords, erythema, or tenderness NEUROLOGICAL: Cranial nerves II through XII grossly intact. Normal speech, normal gait SKIN: Warm, Dry, normal turgor, no rashes or lesions noted. - Medical Decision Making 07/21/18 23:54 Documentation prepared by Gill Adams, acting as medical historian for Analia Figueroa MD <Gill Adams - Last Filed: 07/21/18 23:52> - Resident Resident Name: Carla Fuller - ED Attending Attestation I have performed the following: I have examined & evaluated the patient, The case was reviewed & discussed with the resident, I agree w/resident's findings & plan - Medical Decision Making 07/22/18 01:16 Pt comes with chest pain. She was treated with cipro for left sided pneumonia that was diagnosed with 2 weeks ago. Pt now comes with right sided pain. Bedside US normal - no pleural effusion, only minimal effusion seen. Pt has normal EKg. Exam normal. CXR normal. Pt will be discharged home. 07/22/18 01:36 We discussed with mom of patient that we will not get blood lab tests today. Mom is in agreement. Pt has no pain with lying flat. Pt has no SOB and she has no fever. <Analia Figueroa - Last Filed: 07/22/18 19:54>
[2018-07-22] MEDS ORDERED: IBUPROFEN 600 MG TABLET (FP) PO ONE ×2 (01:14→01:18)
--- NOTE | 2018-07-22 09:58 | EKG ---
Test Reason : Blood Pressure : / mmHG Vent. Rate : 089 BPM Atrial Rate : 089 BPM P-R Int : 138 ms QRS Dur : 072 ms QT Int : 372 ms P-R-T Axes : 050 068 027 degrees QTc Int : 452 ms NORMAL SINUS RHYTHM WITH SINUS ARRHYTHMIA WHEN COMPARED WITH ECG OF 22-JUN-2018 22:44, NO SIGNIFICANT CHANGE WAS FOUND Confirmed by ALTAGRACIA SPICER MD ([id number]) on 07/22/2018 9:58:16 AM Referred By: Confirmed By:ALTAGRACIA SPICER MD
== END 2018-07-22 02:14 | disposition home or self-care (01) ==
LOC: JER 22:48
DX: R07.9 Chest pain, unspecified (principal); M34.81 Systemic sclerosis with lung involvement; F84.0 Autistic disorder; Z86.69 Personal history of other diseases of the nervous system and sense organs; Z87.01 Personal history of pneumonia (recurrent); I73.00 Raynaud's syndrome without gangrene
CPT/HCPCS: 71046-TC-FY; 84703; 93005; 93010; 99282-25

== ENCOUNTER 2018-10-29 18:55 | Emergency (ER) | payer OTHER ==
[2018-10-29 19:09] VITALS: BMI 26.7
[2018-10-29] MEDS ORDERED: ASPIRIN 81 MG CHEWABLE TABLETS PO ONE (20:01)
--- NOTE | 2018-10-29 20:04 | PDOC ---
History of Present Illness - General Chief Complaint: Chest Pain Stated Complaint: CHEST PAIN Time Seen by Provider: 10/29/18 19:48 - History of Present Illness Initial Comments: 10/29/18 20:03 32-year-old female presents for evaluation of chest pain. She states this morning she felt the chest pain after eating breakfast. And her pain has been waxing and waning throughout the day without any specific exacerbating factors. Her pain radiates through to her back. 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 Past History - Past Medical History Allergies/Adverse Reactions: Allergies Allergy/AdvReac Type Severity Reaction Status Date / Time No Known Allergies Allergy Verified 10/29/18 19:06 Home Medications: Ambulatory Orders Nifedipine ER [Procardia Xl -] 60 mg PO DAILY 07/22/18 Aspirin [ASA -] 81 mg PO DAILY 10/29/18 Ondansetron [Zofran -] 4 mg PO ASDIR 10/29/18 Sulfamethoxazole/Trimethoprim [Bactrim Ds Tablet] 1 each PO ASDIR 10/29/18 Cancer: Yes (lung) COPD: No CHF: No DVT: No Seizures: Yes (NO ACTIVITY SINCE 18 YRS OLD) - Surgical History Cardiac Surgery: Yes (Pericardial window) Orthopedic Surgery: Yes (knee Surgery) - Immunization History Immunization Up to Date: Yes - Suicide/Smoking/Psychosocial Hx Smoking Status: No Smoking History: Never smoked Have you smoked in the past 12 months: No Number of Cigarettes Smoked Daily: 0 Hx Alcohol Use: No Drug/Substance Use Hx: No Substance Use Type: None Review of Systems - Review of Systems Cardiac (ROS): Yes: Chest Pain *Physical Exam - Vital Signs Last Vital Signs Temp Pulse Resp BP Pulse Ox 98.2 F 89 17 105/71 96 10/29/18 19:06 10/29/18 19:06 10/29/18 19:06 10/29/18 19:06 10/29/18 19:06 - Physical Exam Comments: 10/29/18 20:03 HEAD: NC/AT EYES: Conjuntiva clear Ears: Canals and TM's normal NOSE: No d/c THROAT: Moist mucous membrances, oral pharanx clear, uvula midline NECK: Supple without adenopathy CARDIAC: S1 S2 LUNGS: CTA Full and Equal breath sounds ABDOMEN: Soft NT ND MS: Full ROM in all joints without edema NEUROLOGIC: No gross sensory or motor deficits, NVID SKIN: Normal color and temperature no lesions or rashes Moderate Sedation - Procedure Monitoring Vital Signs: Procedure Monitoring Vital Signs Temperature 98.2 F 10/29/18 19:06 Pulse Rate 89 10/29/18 19:06 Respiratory Rate 17 10/29/18 19:06 Blood Pressure 105/71 10/29/18 19:06 O2 Sat by Pulse Oximetry (%) 96 10/29/18 19:06 ED Treatment Course - RADIOLOGY Radiology Studies Ordered: Category Date Time Status CHEST PA & LAT [RAD] Stat Radiology 10/29/18 20:01 Ordered Medical Decision Making - Medical Decision Making 10/29/18 20:03 Leads V2 and V3 show ST elevation not greater than 1 smallpox and flipped T waves. I do not have a prior EKG to compare this to. I will bump her to the main emergency room and started cardiac workup. 10/29/18 20:04 d/w Er attending *DC/Admit/Observation/Transfer Diagnosis at time of Disposition: Chest pain - Referrals Referrals: Villa Peters MD [Primary Care Provider] - - Patient Instructions - Post Discharge Activity
[2018-10-29] MEDS ORDERED: ASPIRIN 81 MG CHEWABLE TABLETS ONE (20:09)
--- NOTE | 2018-10-29 20:40 | PDOC ---
History of Present Illness - General History Source: Patient, Parent(s) (Mother) Exam Limitations: No Limitations - History of Present Illness Initial Comments: 10/29/18 21:15 The patient is a 32-year-old female with a past medical history significant for scleroderma (dx 4 years ago, complicated by pericardial effusion and left-sided pneumothorax), hx of interstitial lung disease and Autism Spectrum Disorder presents to the emergency department with chest pain. The patient presents with anterior mid-chest pain that started after eating breakfast. The patient reports initially the pain was 8/10, now has gone down in severity. The patient took ASA for the pain. The mom reports the patient has a new onset of facial rash surrounding her cheeks, thats sore in quality, denies itchiness. Denies SOB. Denies fever, chills, or body ache. Allergies: NKDA PCP: Dr. Peters. <Carole Hou - Last Filed: 10/29/18 21:26> <Analia Figueroa - Last Filed: 10/30/18 00:47> - General Chief Complaint: Chest Pain Stated Complaint: CHEST PAIN Time Seen by Provider: 10/29/18 19:48 Past History <Carole Hou - Last Filed: 10/29/18 21:26> - Past Medical History Cancer: Yes (lung) COPD: No CHF: No DVT: No Seizures: Yes (NO ACTIVITY SINCE 18 YRS OLD) - Surgical History Cardiac Surgery: Yes (Pericardial window) Orthopedic Surgery: Yes (knee Surgery) - Immunization History Immunization Up to Date: Yes - Suicide/Smoking/Psychosocial Hx Smoking Status: No Smoking History: Never smoked Have you smoked in the past 12 months: No Number of Cigarettes Smoked Daily: 0 Hx Alcohol Use: No Drug/Substance Use Hx: No Substance Use Type: None <Analia Figueroa - Last Filed: 10/30/18 00:47> - Past Medical History Allergies/Adverse Reactions: Allergies Allergy/AdvReac Type Severity Reaction Status Date / Time No Known Allergies Allergy Verified 10/29/18 19:06 Home Medications: Ambulatory Orders Nifedipine ER [Procardia Xl -] 60 mg PO DAILY 07/22/18 Aspirin [ASA -] 81 mg PO DAILY 10/29/18 Azithromycin [Zithromax Tri-Zhou (3 DAYS) -] 500 mg PO DAILY #3 tablet 10/29/18 Ondansetron [Zofran -] 4 mg PO ASDIR 10/29/18 Sulfamethoxazole/Trimethoprim [Bactrim Ds Tablet] 1 each PO ASDIR 10/29/18 Review of Systems - Review of Systems Able to Perform ROS?: Yes Comments:: 10/29/18 21:18 GENERAL/CONSTITUTIONAL: No fever or chills. No weakness. HEAD, EYES, EARS, NOSE AND THROAT: No change in vision. No ear pain or discharge. No sore throat. CARDIOVASCULAR: +Chest pain. No shortness of breath. RESPIRATORY: No cough, wheezing, or hemoptysis. GASTROINTESTINAL: No nausea, vomiting, diarrhea or constipation. GENITOURINARY: No dysuria, frequency, or change in urination. MUSCULOSKELETAL: No joint or muscle swelling or pain. No neck or back pain. SKIN: +facial rash NEUROLOGIC: No headache, vertigo, loss of consciousness, or change in strength/ sensation. ENDOCRINE: No increased thirst. No abnormal weight change. HEMATOLOGIC/LYMPHATIC: No anemia, easy bleeding, or history of blood clots. ALLERGIC/IMMUNOLOGIC: No hives or skin allergy. <Carole Hou - Last Filed: 10/29/18 21:26> *Physical Exam - Vital Signs Last Vital Signs Temp Pulse Resp BP Pulse Ox 98.2 F 89 17 105/71 96 10/29/18 19:06 10/29/18 19:06 10/29/18 19:06 10/29/18 19:06 10/29/18 19:06 - Physical Exam Comments: 10/29/18 21:16 GENERAL: Afebril Awake, alert, and fully oriented, in no acute distress HEAD: No signs of trauma EYES: PERRLA, EOMI, sclera anicteric, conjunctiva clear ENT: Auricles normal inspection, hearing grossly normal, nares patent, oropharynx clear without exudates. Moist mucosa NECK: Normal ROM, supple, no lymphadenopathy, JVD, or masses LUNGS: +B/L crackles noted at the base. Breath sounds equal, clear to auscultation bilaterally. No wheezes. HEART: Regular rate and rhythm, normal S1 and S2, no murmurs, rubs or gallops ABDOMEN: Soft, nontender. No guarding, no rebound. No masses EXTREMITIES: Normal range of motion, no edema. No clubbing or cyanosis. No cords, erythema, or tenderness NEUROLOGICAL: Awake and alert, answering all questions. SKIN: +small patchy malar distribution rash quarter CM in diameter. Warm, Dry, normal turgor, no other rashes or lesions noted. <Carole Hou - Last Filed: 10/29/18 21:26> - Vital Signs Last Vital Signs Temp Pulse Resp BP Pulse Ox 98.2 F 89 17 105/71 96 10/29/18 19:06 10/29/18 19:06 10/29/18 19:06 10/29/18 19:06 10/29/18 19:06 <Analia Figueroa - Last Filed: 10/30/18 00:47> Moderate Sedation - Procedure Monitoring Vital Signs: Procedure Monitoring Vital Signs Temperature 98.2 F 10/29/18 19:06 Pulse Rate 89 10/29/18 19:06 Respiratory Rate 17 10/29/18 19:06 Blood Pressure 105/71 10/29/18 19:06 O2 Sat by Pulse Oximetry (%) 96 10/29/18 19:06 <Carole Hou - Last Filed: 10/29/18 21:26> - Procedure Monitoring Vital Signs: Procedure Monitoring Vital Signs Temperature 98.2 F 10/29/18 19:06 Pulse Rate 89 10/29/18 19:06 Respiratory Rate 17 10/29/18 19:06 Blood Pressure 105/71 10/29/18 19:06 O2 Sat by Pulse Oximetry (%) 96 10/29/18 19:06 <Analia Figueroa - Last Filed: 10/30/18 00:47> ED Treatment Course - LABORATORY CBC & Chemistry Diagram: 10/29/18 20:30 10/29/18 20:30 - ADDITIONAL ORDERS Additional order review: Laboratory Results 10/29/18 10/29/18 10/29/18 20:30 20:30 20:30 PT with INR INR D-Dimer 635 H Sodium 138 Potassium 4.5 Chloride 103 Carbon Dioxide 28 Anion Gap 7 L BUN 8 Creatinine 0.8 Creat Clearance w eGFR > 60 Random Glucose 79 Calcium 8.2 L Magnesium 1.8 Total Bilirubin 0.2 AST 14 L ALT 12 L Alkaline Phosphatase 101 Creatine Kinase 156 Troponin I < 0.02 B-Natriuretic Peptide 40.4 Total Protein 8.1 Albumin 3.3 L Serum , Qual Negative 10/29/18 20:30 PT with INR 12.30 INR 1.04 D-Dimer Sodium Potassium Chloride Carbon Dioxide Anion Gap BUN Creatinine Creat Clearance w eGFR Random Glucose Calcium Magnesium Total Bilirubin AST ALT Alkaline Phosphatase Creatine Kinase Troponin I B-Natriuretic Peptide Total Protein Albumin Serum , Qual 10/29/18 20:30 RBC 4.15 MCV 88.0 MCHC 34.0 RDW 13.8 MPV 7.6 Neutrophils % 70.3 Lymphocytes % 20.9 D Monocytes % 6.4 Eosinophils % 1.9 D Basophils % 0.5 - Medications Given in the ED: ED Medications Discontinued Medications Generic Name Dose Route Start Last Admin Trade Name Freq PRN Reason Stop Dose Admin Aspirin 162 mg 10/29/18 20:01 10/29/18 20:12 Asa - PO 10/29/18 20:02 162 mg ONCE ONE Administration <Carole Hou - Last Filed: 10/29/18 21:26> - LABORATORY CBC & Chemistry Diagram: 10/29/18 20:30 10/29/18 20:30 - Medications Given in the ED: ED Medications Discontinued Medications Generic Name Dose Route Start Last Admin Trade Name Freq PRN Reason Stop Dose Admin Aspirin 162 mg 10/29/18 20:01 10/29/18 20:12 Asa - PO 10/29/18 20:02 162 mg ONCE ONE Administration <Analia Figueroa - Last Filed: 10/30/18 00:47> Medical Decision Making - Medical Decision Making 10/29/18 21:25 The patient is noted to have elevated D-dimer to be 635. <Carole Hou - Last Filed: 10/29/18 21:26> - Medical Decision Making 10/29/18 21:46 Pt has an elevated ddimer and she will be sent for a CTA to r/o PE or other pathology. 10/29/18 23:42 Patient Name: JEANNA LEMUS THIS IS A PRELIMINARY REPORT FROM [facility] DATE OF SERVICE: 2018-10-29 22:12:01 IMAGES: [id number] EXAM: CHEST CTA HISTORY: Rule out PE COMPARISON: None. FINDINGS: There is no evidence of pulmonary embolism The thoracic aorta is normal in course and caliber without dissection The heart is not enlarged. There is a small pericardial effusion Shotty subcentimeter bilateral hilar lymph nodes and enlarged bilateral axillary lymph nodes which measure up to 1.2 cm in short axis The tracheobronchial tree is patent Subpleural fibrotic changes and honeycombing throughout both lungs compatible with nonspecific chronic interstitial lung disease possibly usual interstitial pneumonia No airspace consolidation, infiltrates or pleural effusions. 5 mm nodule in the right upper lobe, series 6 image 44. Suggest follow-up per Fleischner Society guidelines as follows: Solitary nodule size: <6 mm - low risk patients: no follow-up needed - high risk patients: optional CT at 12 months No gross abnormalities in the included portions of the upper abdomen <Analia Figueroa - Last Filed: 10/30/18 00:47> *DC/Admit/Observation/Transfer - Attestations Scribe Attestion: 10/29/18 21:19 Documentation prepared by Carole Hou, acting as program medical director for Analia Figueroa MD. <Carole Hou - Last Filed: 10/29/18 21:26> - Discharge Dispostion Decision to Admit order: No <Analia Figueroa - Last Filed: 10/30/18 00:47> Diagnosis at time of Disposition: Chest pain, Pneumonia - Discharge Dispostion Disposition: HOME Condition at time of disposition: Stable - Prescriptions Prescriptions: Azithromycin [Zithromax Tri-Zhou (3 DAYS) -] 500 mg PO DAILY #3 tablet - Referrals Referrals: Villa Peters MD [Primary Care Provider] - - Patient Instructions Printed Discharge Instructions: Pneumonia-Adult - Post Discharge Activity
[2018-10-29 20:42] LABS: BASO % 0.5 % (0-2.0); EOS % 1.9 % (0-4.5); HEMATOCRIT 36.5 % (32.4-45.2); HEMOGLOBIN 12.4 GM/dL (10.7-15.3); LYMPH % 20.9 % (8-40); MCH 29.9 pg (25.7-33.7); MEAN PLT VOLUME 7.6 fl (7.5-11.1); MONO % 6.4 % (3.8-10.2); NEUT % 70.3 % (42.8-82.8); PLATELET COUNT 323 K/MM3 (134-434); RBC 4.15 M/mm3 (3.60-5.2); RDW 13.8 % (11.6-15.6); WHITE BLOOD COUNT 10.7 K/mm3 (4.0-10.0)
[2018-10-29 20:54] LABS: INR 1.04 (0.83-1.09); PROTHROMBIN TIME (PATIENT) 12.3 SEC (9.7-13.0)
[2018-10-29 21:08] LABS: ALBUMIN 3.3 g/dl (3.4-5.0); ALK PHOS 101 U/L (45-117); ANION GAP 7 MMOL/L (8-16); BILIRUBIN,TOTAL 0.2 mg/dL (0.2-1); BLOOD UREA NITROGEN 8 mg/dL (7-18); CALCIUM 8.2 mg/dL (8.5-10.1); CHLORIDE 103 mmol/L (98-107); CO2 28 mmol/L (21-32); CREATININE 0.8 mg/dL (0.55-1.3); GLUCOSE,RANDOM 79 mg/dL (74-106); MAGNESIUM 1.8 mg/dL (1.8-2.4); N-TERMINAL BNP 40.4 pg/ml (5-125); POTASSIUM 4.5 mmol/L (3.5-5.1); SGOT/AST 14 U/L (15-37); SGPT/ALT 12 U/L (13-61); SODIUM 138 mmol/L (136-145); TOT PROT 8.1 g/dl (6.4-8.2)
[2018-10-29] MEDS ORDERED: DEXAMETHASONE LIQUID 0.5 MG/5 ML 240 ML BULK BOTTLE PO ONE (21:08)
[2018-10-29] MEDS ORDERED: ALBUTEROL SO4 2.5/IPRATROPIUM 0.5 INH SOL 3 ML VIAL.NEB. NEB ONE ×2 (21:15→21:30)
[2018-10-29] MEDS ORDERED: DEXAMETHASONE SOD PHOSPHATE 10 MG/1 ML VIAL ONE (21:31)
[2018-10-29] MEDS ORDERED: CEFTRIAXONE 1 GM in DEXTROSE 5%-WATER - 50 ML IVPB ONE (23:47)
[2018-10-29] MEDS ORDERED: AZITHROMYCIN IVPB 500 MG in DEXTROSE 5%-WATER - 250 ML IVPB ONE (23:47)
[2018-10-30 00:16] VITALS: BP 109/70; PULSE 76
[2018-10-30 00:19] VITALS: TEMP 97.7
[2018-10-30] MEDS ORDERED: CEFTRIAXONE 1 GM/50 ML BAG ONE (00:24)
[2018-10-30] MEDS ORDERED: AZITHROMYCIN IVPB 500 MG/250 ML BAG IVPB ONE (00:25)
--- NOTE | 2018-11-01 13:52 | EKG ---
Test Reason : Blood Pressure : / mmHG Vent. Rate : 084 BPM Atrial Rate : 084 BPM P-R Int : 136 ms QRS Dur : 078 ms QT Int : 368 ms P-R-T Axes : 054 066 032 degrees QTc Int : 434 ms NORMAL SINUS RHYTHM WITH SINUS ARRHYTHMIA POSSIBLE LEFT ATRIAL ENLARGEMENT BORDERLINE ECG WHEN COMPARED WITH ECG OF 22-JUL-2018 00:25, NO SIGNIFICANT CHANGE WAS FOUND Confirmed by MD Freddy, Flaco ([id number]) on 11/01/2018 1:52:10 PM Referred By: Confirmed By:Flaco Hayes MD
== END 2018-10-30 01:40 | disposition home or self-care (01) ==
LOC: JER 18:55 → JERFT 18:55 → JER 10-30 01:40
PROC: 3E0F7GC Introduction of Other Therapeutic Substance into Respiratory Tract, Via Natural or Artificial Opening (ICD-10-PCS; principal; 2018-10-29)
PROC: 3E03329 Introduction of Other Anti-infective into Peripheral Vein, Percutaneous Approach (ICD-10-PCS; 2018-10-29)
PROC: 3E03329 Introduction of Other Anti-infective into Peripheral Vein, Percutaneous Approach (ICD-10-PCS; 2018-10-29)
DX: R07.9 Chest pain, unspecified (principal); J18.9 Pneumonia, unspecified organism; M34.81 Systemic sclerosis with lung involvement; F84.0 Autistic disorder
CPT/HCPCS: 36415; 71046-TC-FY; 71275-TC; 80053; 82550; 82553; 83735; 83880; 84484; 84703; 85025; 85379; 85610; 93005; 93010; 94640; 96365; 96367; 99283-25

== ENCOUNTER 2019-02-12 19:38 | Emergency (ER) | payer OTHER | END 2019-02-13 02:22 | disposition home or self-care (01) | LOC: JER 02-13 02:22 | DX: R07.9 Chest pain, unspecified (principal); M34.81 Systemic sclerosis with lung involvement; I73.00 Raynaud's syndrome without gangrene; Z99.81 Dependence on supplemental oxygen; Z87.09 Personal history of other diseases of the respiratory system ==

== ENCOUNTER 2020-11-11 12:18 | Emergency (ER) | payer OTHER ==
[2020-11-11 12:51] VITALS: TEMP 98.4; BMI 30.5
[2020-11-11 14:19] LABS: BASO % 0.2 % (0-2.0); EOS % 0.1 % (0-4.5); HEMATOCRIT 33.8 % (32.4-45.2); HEMOGLOBIN 10.4 GM/dL (10.7-15.3); LYMPH % 12.2 % (8-40); MCH 26.8 pg (25.7-33.7); MCHC 30.9 g/dl (32.0-36.0); MEAN PLT VOLUME 7.8 fl (7.5-11.1); NEUT % 85.5 % (42.8-82.8); PLATELET COUNT 351 K/MM3 (134-434); RBC 3.88 M/mm3 (3.60-5.2); WHITE BLOOD COUNT 15.6 K/mm3 (4.0-10.0)
[2020-11-11 14:20] LABS: VENOUS BASE EXCESS -0.9 mmol/L (-2-2); VENOUS O2 SATURATION 63.5 % (70-80); VENOUS PCO2 49.8 mmHg (38-52); VENOUS PH 7.329 (7.310-7.410)
[2020-11-11 14:29] LABS: INR 0.98 (0.83-1.09); PROTHROMBIN TIME (PATIENT) 12.1 SEC (9.7-13.0)
[2020-11-11 14:32] LABS: ACTIVATED PTT 31.4 SECONDS (25.2-36.5)
[2020-11-11 14:38] LABS: POTASSIUM 4.5 mmol/L (3.5-5.1)
[2020-11-11 14:40] LABS: CALCIUM 9.6 mg/dL (8.5-10.1)
[2020-11-11 14:41] LABS: ALBUMIN 3.1 g/dl (3.4-5.0)
[2020-11-11 14:44] LABS: CREATININE 1.1 mg/dL (0.55-1.3)
[2020-11-11 14:46] LABS: BILIRUBIN,TOTAL 0.2 mg/dL (0.2-1); TOT PROT 6.6 g/dl (6.4-8.2)
[2020-11-11 16:08] VITALS: BP 127/96; PULSE 93
== END 2020-11-11 16:22 | disposition short-term general hospital (02) ==
LOC: JER 12:18
DX: R09.02 Hypoxemia (principal)
CPT/HCPCS: 36415; 71045-TC-FY; 80053; 82803; 85025; 85610; 85730; 93005; 93010; 99285-25

== ENCOUNTER 2024-10-15 13:23 | Emergency (ER) | payer OTHER ==
[2024-10-15 13:41] VITALS: BMI 27.9
[2024-10-15] MEDS ORDERED: ACETAMINOPHEN INJECTION 100 ML ONE (14:06)
[2024-10-15 14:13] LABS: BASO % 0.3 % (0-2.0); EOS % 0.2 % (0-4.5); HEMATOCRIT 40.6 % (32.4-45.2); HEMOGLOBIN 12.5 GM/dL (10.7-15.3); LYMPH % 11.5 % (8-40); MCH 26.3 pg (25.7-33.7); MCHC 30.9 g/dl (32.0-36.0); MEAN CELL VOLUME 85.3 fl (80-96); MEAN PLT VOLUME 7.5 fl (7.5-11.1); MONO % 4.8 % (3.8-10.2); NEUT % 83.2 % (42.8-82.8); PLATELET COUNT 383 10^3/uL (134-434); RBC 4.76 M/mm3 (3.60-5.2); RDW 15.5 % (11.6-15.6); WHITE BLOOD COUNT 13.6 K/mm3 (4.0-10.0)
[2024-10-15] MEDS: ACETAMINOPHEN 1000 MG/100 ML BAG IVPB ONE (14:20)
[2024-10-15 14:36] LABS: POTASSIUM 4.7 mmol/L (3.5-5.1)
[2024-10-15 14:39] LABS: ALBUMIN 3.4 g/dl (3.4-5.0); BLOOD UREA NITROGEN 12.1 mg/dL (7-18); CALCIUM 9.8 mg/dL (8.5-10.1); MAGNESIUM 1.3 mg/dL (1.8-2.4)
[2024-10-15 14:42] LABS: CREATININE 1.3 mg/dL (0.55-1.3)
[2024-10-15 14:44] LABS: BILIRUBIN,TOTAL 0.2 mg/dL (0.2-1); TOT PROT 6.9 g/dl (6.4-8.2)
[2024-10-15] MEDS: LACTATED RINGERS SOLUTION 1000 ML INFUS.BAG IV ONE (14:48)
[2024-10-15 14:57] LABS: EPI CELLS 19 /uL (0-25.1); HYALINE CASTS 1 /uL (0-3.1); PH,URINE 5.5 (5.0-8.0); URINE APPEARANCE CLEAR; URINE BACTERIA 1232 /uL (0-1359); URINE BILIRUBIN NEGATIVE (NEGATIVE); URINE COLOR YELLOW; URINE GLUCOSE (UA) NEGATIVE (NEGATIVE); URINE KETONE TRACE (NEGATIVE); URINE LEUK ESTERASE NEGATIVE (NEGATIVE); URINE NITRITE NEGATIVE (NEGATIVE); URINE PROTEIN 2+ (NEGATIVE); URINE RBC 8 /uL (0-23.9); URINE UROBILINOGEN 0.2 mg/dL (0.2-1.0); URINE WBC 13 /uL (0-25.8)
[2024-10-15] MEDS ORDERED: MAGNESIUM SULFATE IN WATER 2 GM/50 ML IVPB IVPB ONE (15:24)
[2024-10-15] MEDS: MAGNESIUM SULFATE IN WATER 2 GM/50 ML IVPB IVPB ONE (15:28)
[2024-10-15] MEDS: CEFTRIAXONE 1,000 MG in DEXTROSE 5%-WATER - 50 ML IVPB ONE (17:11)
[2024-10-15] MEDS ORDERED: CEFTRIAXONE 1 G/50 ML PREMIX 50 ML IVPB ONE (17:11)
[2024-10-15 17:26] VITALS: BP 120/91; PULSE 84; RESP 17; TEMP 98
== END 2024-10-15 18:30 | disposition home or self-care (01) ==
LOC: JER 13:23
PROC: 3E03329 Introduction of Other Anti-infective into Peripheral Vein, Percutaneous Approach (ICD-10-PCS; principal; 2024-10-15)
PROC: 3E033GC Introduction of Other Therapeutic Substance into Peripheral Vein, Percutaneous Approach (ICD-10-PCS; 2024-10-15)
PROC: 3E033NZ Introduction of Analgesics, Hypnotics, Sedatives into Peripheral Vein, Percutaneous Approach (ICD-10-PCS; 2024-10-15)
DX: R10.31 Right lower quadrant pain (principal); R10.32 Left lower quadrant pain; R19.7 Diarrhea, unspecified; M79.10 Myalgia, unspecified site; R11.10 Vomiting, unspecified; N39.0 Urinary tract infection, site not specified; Z20.822 Contact with and (suspected) exposure to COVID-19
CPT/HCPCS: 0241U-QW; 36415; 74177-TC; 80053; 81003; 83690; 83735; 84703; 85025; 87086; 99285-25; J0131